=== PATIENT | male | born 1950 | race African-American/Black ===

== ENCOUNTER 2018-08-12 15:53 | Inpatient (IN) | payer OTHER ==
[2018-08-12 16:43] VITALS: BMI 26.6
--- NOTE | 2018-08-12 19:04 | HP ---
"CIWA Score Nausea/Vomitin-Mild Nausea/No Vomiting Muscle Tremors: 4-Moderate,w/Arms Extend Anxiety: 2 Agitation: 4-Moderately Restless Paroxysmal Sweats: 1-Minimal Palms Moist Orientation: 2-Disoriented Date<2 days Tacttile Disturbances: 0-None Auditory Disturbances: 0-None Visual Disturbances: 0-None Headache: 0-None Present CIWA-Ar Total Score: 14 - Admission Criteria OASAS Guidelines: Admission for Medically Managed Detox: Requires at least one of the followin. CIWA greater than 12 2. Seizures within the past 24 hours 3. Delirium tremens within the past 24 hours 4. Hallucinations within the past 24 hours 5. Acute intervention needed for co occurring medical disorder 6. Acute intervention needed for co occurring psychiatric disorder 7. Severe withdrawal that cannot be handled at a lower level of care (continued vomiting, continued diarrhea, abnormal vital signs) requiring intravenous medication and/or fluids 8. Patient presents the following: CIWA greater than 12 Admission Criteria Met: Admission criteria met Admission ROS [facility] Chief Complaint: Here for alcohol withdrawal. Allergies/Adverse Reactions: Allergies Allergy/AdvReac Type Severity Reaction Status Date / Time No Known Allergies Allergy Verified 08/12/18 17:28 History of Present Illness: Hx alcohol use since age 19. Denies blackouts, seizures. Longest length of sobriety '94 to '09. Hx: A-Fib, HTN, DM, Increased cholesterol. BGM on admission 249. Hx: Prostectomy, Seen at [facility] ER for depression earlier today and sent to [facility] for alcohol detox. Denies thoughts of harming self or others. Search Terms: [facility] [place], 1950 Search Date: 08/12/2018 07:01:55 PM The Drug Utilization Report below displays all of the controlled substance prescriptions, if any, that your patient has filled in the last twelve months. The information displayed on this report is compiled from pharmacy submissions to the Department, and accurately reflects the information as submitted by the pharmacies. This report was requested by: Gauri Verma | Reference #: [id number] There are no results for the search terms that you entered. Exam Limitations: No Limitations - Ebola screening Have you traveled outside of the country in the last 21 days: Yes ([facility]) Have you had contact with anyone from an Ebola affected area: No Have you been sick,other than usual withdrawal symptoms: No Do you have a fever: No - Review of Systems Constitutional: Diaphoresis, Changes in sleep (Difficulty sleeping r/t alcohol use) EENT: reports: Blurred Vision, Other (Runny nose - r/t cold weather) Respiratory: reports: No Symptoms reported Cardiac: reports: Irregular Heart Rate (A- Fib) GI: reports: Nausea (r/t withdrawal), Indigestion (burning sensation when drinking) : reports: Frequency (4-5 x/night nocturia. Denies burning, pain, blood w/ urination.) Musculoskeletal: reports: Back Pain (Chronic intermittent LBP - 'nagging' - pain is a '5'. Worse in am's when getting OOB. Improves w/support and rest.) Integumentary: reports: No Symptoms Reported Neuro: reports: Numbness (Occ numbness in fingers r/t sleeping position.), Tremors Endocrine: reports: No Symptoms Reported Hematology: reports: No Symptoms Reported Psychiatric: reports: Judgement Intact, Orientated x3 (Missed date by 2 days.), Agitated, Anxious, Depressed (Denies thoughts of harming self or others) Patient History - Patient Medical History Hx Anemia: No Hx Asthma: No Hx Chronic Obstructive Pulmonary Disease (COPD): No Hx Cancer: No Hx Cardiac Disorders: No Hx Congestive Heart Failure: No Hx Hypertension: Yes Hx Hypercholesterolemia: Yes Hx Pacemaker: No HX Cerebrovascular Accident: No Hx Seizures: No Hx Dementia: No Hx Diabetes: Yes (NIDDM) Hx Gastrointestinal Disorders: No Hx Liver Disease: No Hx Genitourinary Disorders: No Hx Sexually Transmitted Disorders: No Hx Renal Disease (ESRD): No Hx Thyroid Disease: No Hx Human Immunodeficiency Virus (HIV): No (3 years ago - negative) Hx Hepatitis C: No Hx Depression: Yes Hx Suicide Attempt: No Hx Bipolar Disorder: No Hx Schizophrenia: No - Patient Surgical History Past Surgical History: Yes Hx Neurologic Surgery: No Hx Cataract Extraction: No Hx Cardiac Surgery: No Hx Lung Surgery: No Hx Breast Surgery: No Hx Breast Biopsy: No Hx Abdominal Surgery: No Hx Appendectomy: No Hx Cholecystectomy: No Hx Genitourinary Surgery: No Hx Section: No Hx Orthopedic Surgery: No Other Surgical History: prostactomy (prostate ca) in 1998 - PPD History Previous Implant?: Yes Documented Results: Positive w/o proof Implanted On Prior [facility] Admission?: No PPD to be Administered?: No - Smoking Cessation Smoking history: Never smoked Have you smoked in the past 12 months: No Hx Chewing Tobacco Use: No Initiated information on smoking cessation: No - Substance & Tx. History Hx Alcohol Use: Yes Hx Substance Use: Yes Substance Use Type: None, Alcohol Hx Substance Use Treatment: Yes (detox) - Substances Abused Alcohol-wine/beer Route: Oral Frequency: 3-6 times per week Amount used: 3 pts./1-6 pk. Age of first use: 19 Date of Last Use: 08/12/18 Admission Physical Exam BHS - Vital Signs Vital Signs: Vital Signs - 24 hr 08/12/18 16:41 Temperature 97.3 F L Pulse Rate 99 H Respiratory 18 Rate Blood Pressure 120/81 - Physical General Appearance: Yes: Mild Distress, Tremorous, Sweating, Anxious HEENTM: Yes: EOMI, Hearing grossly Normal, Normal Voice, HALIE, Pharynx Normal, Rhinorrhea (Clear nasal discharge) Respiratory: Yes: Lungs Clear, Normal Breath Sounds, No Respiratory Distress Neck: Yes: No masses,lesions,Nodules, Supple Breast: Yes: Breast Exam Deferred Cardiology: Yes: Murmur, Tachycardia, Irregular Abdominal: Yes: Non Tender, Flat, Soft, Increased Bowel Sounds Genitourinary: Yes: Frequency Back: Yes: Normal Inspection Musculoskeletal: Yes: full range of Motion, Gait Steady Extremities: Yes: Normal Capillary Refill, Normal Range of Motion, Non-Tender, Tremors (of hands when arms extended) 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: 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: 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 intact, Alert, Motor Strength 5/5, Normal Mood /Affect, Normal Response Integumentary: Yes: Normal Color, Dry (Decreased skin turgor), Warm Lymphatic: Yes: Within Normal Limits - Diagnostic (1) Atrial fibrillation Current Visit: Yes Status: Acute Qualifiers: Atrial fibrillation type: chronic Qualified Code(s): I48.2 - Chronic atrial fibrillation Comment: Murmur noted; tachycardia (2) Alcohol dependence with uncomplicated withdrawal Current Visit: Yes Status: Acute (3) Diabetes mellitus Current Visit: Yes Status: Chronic Qualifiers: Diabetes mellitus type: type 2 Diabetes mellitus bed bug exterminator insulin use: without bed bug exterminator use Diabetes mellitus complication status: without complication Qualified Code(s): E11.9 - Type 2 diabetes mellitus without complications (4) H/O prostatectomy Current Visit: No Status: Chronic (5) Hyperlipidemia Current Visit: Yes Status: Chronic Qualifiers: Hyperlipidemia type: unspecified Qualified Code(s): E78.5 - Hyperlipidemia , unspecified (6) Hypertension Current Visit: Yes Status: Chronic Qualifiers: Hypertension type: essential hypertension Qualified Code(s): I10 - Essential (primary) hypertension (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
[2018-08-12] MEDS ORDERED: MAGNESIUM CITRATE 300 ML BOTTLE PO PRN (19:48)
[2018-08-12] MEDS ORDERED: MENTHOL/PHENOL 1 EACH UD MM PRN (19:48)
[2018-08-12] MEDS ORDERED: ACETAMINOPHEN 325 MG TABLET (FP) PO PRN (19:48)
[2018-08-12] MEDS ORDERED: MAG HYDROX/AL HYDROX/SIMETH 30 ML UNIT-DOSE CUP PO PRN (19:48)
[2018-08-12] MEDS ORDERED: LOPERAMIDE HCL 2 MG CAPSULE PO PRN (19:48)
[2018-08-12] MEDS ORDERED: chlordiazePOXIDE HCL 25 MG CAPSULE PO PRN (19:48)
[2018-08-12] MEDS ORDERED: MAGNESIUM HYDROX 2400MG/30ML ORAL SUSPENSION 30 ML CUP PO PRN (19:48)
[2018-08-12] MEDS ORDERED: chlordiazePOXIDE HCL 25 MG CAPSULE PO ONE (20:30)
[2018-08-12] MEDS ORDERED: MELATONIN 5 MG TABLETS PO PRN (22:00)
[2018-08-12] MEDS: chlordiazePOXIDE HCL 25 MG CAPSULE PO SCH (23:10)
[2018-08-12] MEDS: THIAMINE HCL 100 MG TABLET (FP) PO SCH (23:10)
[2018-08-12] MEDS: ATORVASTATIN CA 40 MG TABLET (FP) PO SCH (23:10)
[2018-08-12] MEDS: APIXABAN 5 MG TABLET PO SCH (23:11)
[2018-08-13] MEDS: chlordiazePOXIDE HCL 25 MG CAPSULE PO SCH ×4 (06:50→22:37)
--- NOTE | 2018-08-13 10:26 | PN ---
BHS CIWA - CIWA Score Nausea/Vomitin Muscle Tremors: 2 Anxiety: 2 Agitation: 2 Paroxysmal Sweats: 2 Orientation: 0-Oriented Tacttile Disturbances: 1-Very Mild Itch/Numbness Auditory Disturbances: 0-None Visual Disturbances: 0-None Headache: 1-Very Mild CIWA-Ar Total Score: 12 BHS Progress Note (SOAP) Subjective: Interrupted sleep, muscle aches, decreased appetite Objective: 08/13/18 10:25 Vital Signs - 8 hr 08/13/18 08/13/18 08/13/18 03:30 06:00 09:20 Temperature 97.5 F L 98.4 F Pulse Rate 98 H 99 H Respiratory 16 18 18 Rate Blood Pressure 109/66 124/93 Labs pending Assessment: 08/13/18 10:25 Withdrawal sx Plan: Continue detox
[2018-08-13 10:43] LABS: HEMATOCRIT 38.3 % (35.4-49); HEMOGLOBIN 12.3 GM/dL (11.7-16.9); MCH 27.7 pg (25.7-33.7); MEAN CELL VOLUME 86.4 fl (80-96); MEAN PLT VOLUME 9.2 fl (7.5-11.1); PLATELET COUNT 238 K/MM3 (134-434); RBC 4.43 M/mm3 (4.00-5.60); RDW 13.6 % (11.9-15.9); WHITE BLOOD COUNT 6.4 K/mm3 (4.0-10.0)
[2018-08-13 10:51] LABS: ALBUMIN 3.4 g/dl (3.4-5.0); ALK PHOS 70 U/L (45-117); ANION GAP 9 MMOL/L (8-16); BILIRUBIN,TOTAL 0.4 mg/dL (0.2-1); BLOOD UREA NITROGEN 11 mg/dL (7-18); CALCIUM 8.5 mg/dL (8.5-10.1); CHLORIDE 95 mmol/L (98-107); CO2 28 mmol/L (21-32); CREATININE 1.3 mg/dL (0.55-1.3); GLUCOSE,RANDOM 205 mg/dL (74-106); POTASSIUM 4.1 mmol/L (3.5-5.1); SGOT/AST 28 U/L (15-37); SGPT/ALT 42 U/L (13-61); SODIUM 133 mmol/L (136-145); TOT PROT 6.7 g/dl (6.4-8.2)
[2018-08-13] MEDS: LISINOPRIL 20 MG TABLET (FP) PO SCH (11:04)
[2018-08-13] MEDS: PRENATAL VITAMINS W/ FOLIC ACID TABLET (FP) PO SCH (11:04)
[2018-08-13] MEDS: APIXABAN 5 MG TABLET PO SCH ×2 (11:04→22:37)
[2018-08-13] MEDS: THIAMINE HCL 100 MG TABLET (FP) PO SCH (22:37)
[2018-08-13] MEDS: ATORVASTATIN CA 40 MG TABLET (FP) PO SCH (22:37)
[2018-08-14] MEDS: chlordiazePOXIDE HCL 25 MG CAPSULE PO SCH ×3 (05:21→16:53)
[2018-08-14] MEDS: PRENATAL VITAMINS W/ FOLIC ACID TABLET (FP) PO SCH (10:16)
[2018-08-14] MEDS: LISINOPRIL 20 MG TABLET (FP) PO SCH (10:16)
[2018-08-14] MEDS: APIXABAN 5 MG TABLET PO SCH ×2 (10:16→22:39)
--- NOTE | 2018-08-14 15:09 | PN ---
S CIWA - CIWA Score Nausea/Vomitin-Mild Nausea/No Vomiting Muscle Tremors: 2 Anxiety: 3 Agitation: 2 Paroxysmal Sweats: 1-Minimal Palms Moist Orientation: 0-Oriented Tacttile Disturbances: 1-Very Mild Itch/Numbness Auditory Disturbances: 0-None Visual Disturbances: 0-None Headache: 0-None Present CIWA-Ar Total Score: 10 BHS Progress Note (SOAP) Subjective: tremor sweat restlessness anxiety Objective: 08/14/18 15:11 Vital Signs Temperature 98.3 F 08/14/18 14:13 Pulse Rate 76 08/14/18 14:13 Respiratory Rate 18 08/14/18 14:13 Blood Pressure 108/65 08/14/18 14:13 O2 Sat by Pulse Oximetry (%) Laboratory Last Values WBC 6.4 K/mm3 (4.0-10.0) 08/13/18 08:00 RBC 4.43 M/mm3 (4.00-5.60) 08/13/18 08:00 Hgb 12.3 GM/dL (11.7-16.9) 08/13/18 08:00 Hct 38.3 % (35.4-49) 08/13/18 08:00 MCV 86.4 fl (80-96) 08/13/18 08:00 MCH 27.7 pg (25.7-33.7) 08/13/18 08:00 MCHC 32.0 g/dl (32.0-35.9) 08/13/18 08:00 RDW 13.6 % (11.9-15.9) 08/13/18 08:00 Plt Count 238 K/MM3 (134-434) D 08/13/18 08:00 MPV 9.2 fl (7.5-11.1) 08/13/18 08:00 Sodium 133 mmol/L (136-145) L 08/13/18 08:00 Potassium 4.1 mmol/L (3.5-5.1) 08/13/18 08:00 Chloride 95 mmol/L (98-107) L 08/13/18 08:00 Carbon Dioxide 28 mmol/L (21-32) 08/13/18 08:00 Anion Gap 9 MMOL/L (8-16) 08/13/18 08:00 BUN 11 mg/dL (7-18) 08/13/18 08:00 Creatinine 1.3 mg/dL (0.55-1.3) 08/13/18 08:00 Creat Clearance w eGFR 55.06 (>60) 08/13/18 08:00 POC Glucometer 203 UNITS (80-120) 08/14/18 05:21 Random Glucose 205 mg/dL (74-106) H 08/13/18 08:00 Calcium 8.5 mg/dL (8.5-10.1) 08/13/18 08:00 Total Bilirubin 0.4 mg/dL (0.2-1) 08/13/18 08:00 AST 28 U/L (15-37) 08/13/18 08:00 ALT 42 U/L (13-61) 08/13/18 08:00 Alkaline Phosphatase 70 U/L (45-117) 08/13/18 08:00 Total Protein 6.7 g/dl (6.4-8.2) 08/13/18 08:00 Albumin 3.4 g/dl (3.4-5.0) 08/13/18 08:00 RPR Titer Nonreactive (NONREACTIVE) 08/13/18 08:00 lab noted Assessment: 08/14/18 15:11 withdrawal sx Plan: continue detox
[2018-08-14] MEDS: THIAMINE HCL 100 MG TABLET (FP) PO SCH (22:39)
[2018-08-14] MEDS: ATORVASTATIN CA 40 MG TABLET (FP) PO SCH (22:39)
[2018-08-14] MEDS: chlordiazePOXIDE 5 MG CAPSULE PO SCH (23:18)
[2018-08-15] MEDS: chlordiazePOXIDE 5 MG CAPSULE PO SCH ×3 (06:30→17:29)
[2018-08-15] MEDS: APIXABAN 5 MG TABLET PO SCH ×2 (10:15→22:50)
[2018-08-15] MEDS: LISINOPRIL 20 MG TABLET (FP) PO SCH (10:15)
[2018-08-15] MEDS: PRENATAL VITAMINS W/ FOLIC ACID TABLET (FP) PO SCH (10:15)
--- NOTE | 2018-08-15 14:19 | PN ---
BHS Progress Note (SOAP) Subjective: feeling better no gi distress no tremor sleep better at night swet Objective: 08/15/18 14:18 Vital Signs Temperature 98.1 F 08/15/18 12:49 Pulse Rate 81 08/15/18 12:49 Respiratory Rate 18 08/15/18 12:49 Blood Pressure 103/68 08/15/18 12:49 O2 Sat by Pulse Oximetry (%) Laboratory Last Values WBC 6.4 K/mm3 (4.0-10.0) 08/13/18 08:00 RBC 4.43 M/mm3 (4.00-5.60) 08/13/18 08:00 Hgb 12.3 GM/dL (11.7-16.9) 08/13/18 08:00 Hct 38.3 % (35.4-49) 08/13/18 08:00 MCV 86.4 fl (80-96) 08/13/18 08:00 MCH 27.7 pg (25.7-33.7) 08/13/18 08:00 MCHC 32.0 g/dl (32.0-35.9) 08/13/18 08:00 RDW 13.6 % (11.9-15.9) 08/13/18 08:00 Plt Count 238 K/MM3 (134-434) D 08/13/18 08:00 MPV 9.2 fl (7.5-11.1) 08/13/18 08:00 Sodium 133 mmol/L (136-145) L 08/13/18 08:00 Potassium 4.1 mmol/L (3.5-5.1) 08/13/18 08:00 Chloride 95 mmol/L (98-107) L 08/13/18 08:00 Carbon Dioxide 28 mmol/L (21-32) 08/13/18 08:00 Anion Gap 9 MMOL/L (8-16) 08/13/18 08:00 BUN 11 mg/dL (7-18) 08/13/18 08:00 Creatinine 1.3 mg/dL (0.55-1.3) 08/13/18 08:00 Creat Clearance w eGFR 55.06 (>60) 08/13/18 08:00 POC Glucometer 164 UNITS (80-120) 08/15/18 06:58 Random Glucose 205 mg/dL (74-106) H 08/13/18 08:00 Calcium 8.5 mg/dL (8.5-10.1) 08/13/18 08:00 Total Bilirubin 0.4 mg/dL (0.2-1) 08/13/18 08:00 AST 28 U/L (15-37) 08/13/18 08:00 ALT 42 U/L (13-61) 08/13/18 08:00 Alkaline Phosphatase 70 U/L (45-117) 08/13/18 08:00 Total Protein 6.7 g/dl (6.4-8.2) 08/13/18 08:00 Albumin 3.4 g/dl (3.4-5.0) 08/13/18 08:00 RPR Titer Nonreactive (NONREACTIVE) 08/13/18 08:00 lab noted [facility] for possible 10 mg po daily 08/15/18 14:19 Assessment: 08/15/18 14:20 mild withdrawal sx Plan: medically supervised detox
[2018-08-15 17:13] LABS: URINE APPEARANCE CLEAR; URINE BILIRUBIN NEGATIVE (<2.0 mg/dL); URINE COLOR STRAW; URINE GLUCOSE (UA) NEGATIVE (NEGATIVE); URINE KETONE NEGATIVE (NEGATIVE); URINE LEUK ESTERASE NEGATIVE (NEGATIVE); URINE NITRITE NEGATIVE (NEGATIVE); URINE PROTEIN NEGATIVE (NEGATIVE); URINE UROBILINOGEN NEGATIVE mg/dL (0.2-1.0)
[2018-08-15] MEDS: chlordiazePOXIDE HCL 10 MG CAPSULE PO SCH (22:50)
[2018-08-15] MEDS: ATORVASTATIN CA 40 MG TABLET (FP) PO SCH (22:50)
[2018-08-15] MEDS: THIAMINE HCL 100 MG TABLET (FP) PO SCH (22:51)
[2018-08-16] MEDS: chlordiazePOXIDE HCL 10 MG CAPSULE PO SCH ×2 (06:40→10:37)
[2018-08-16 09:35] VITALS: BP 123/78; PULSE 94; TEMP 97.7
[2018-08-16] MEDS: PRENATAL VITAMINS W/ FOLIC ACID TABLET (FP) PO SCH (10:37)
[2018-08-16] MEDS: APIXABAN 5 MG TABLET PO SCH (10:37)
[2018-08-16] MEDS: LISINOPRIL 20 MG TABLET (FP) PO SCH (10:37)
--- NOTE | 2018-08-16 12:00 | DS ---
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43 M/mm3 (4.00-5.60) 08/13/18 08:00 Hgb 12.3 GM/dL (11.7-16.9) 08/13/18 08:00 Hct 38.3 % (35.4-49) 08/13/18 08:00 MCV 86.4 fl (80-96) 08/13/18 08:00 MCH 27.7 pg (25.7-33.7) 08/13/18 08:00 MCHC 32.0 g/dl (32.0-35.9) 08/13/18 08:00 RDW 13.6 % (11.9-15.9) 08/13/18 08:00 Plt Count 238 K/MM3 (134-434) D 08/13/18 08:00 MPV 9.2 fl (7.5-11.1) 08/13/18 08:00 Sodium 133 mmol/L (136-145) L 08/13/18 08:00 Potassium 4.1 mmol/L (3.5-5.1) 08/13/18 08:00 Chloride 95 mmol/L (98-107) L 08/13/18 08:00 Carbon Dioxide 28 mmol/L (21-32) 08/13/18 08:00 Anion Gap 9 MMOL/L (8-16) 08/13/18 08:00 BUN 11 mg/dL (7-18) 08/13/18 08:00 Creatinine 1.3 mg/dL (0.55-1.3) 08/13/18 08:00 Creat Clearance w eGFR 55.06 (>60) 08/13/18 08:00 POC Glucometer 183 UNITS (80-120) 08/16/18 11:24 Random Glucose 205 mg/dL (74-106) H 08/13/18 08:00 Calcium 8.5 mg/dL (8.5-10.1) 08/13/18 08:00 Total Bilirubin 0.4 mg/dL (0.2-1) 08/13/18 08:00 AST 28 U/L (15-37) 08/13/18 08:00 ALT 42 U/L (13-61) 08/13/18 08:00 Alkaline Phosphatase 70 U/L (45-117) 08/13/18 08:00 Total Protein 6.7 g/dl (6.4-8.2) 08/13/18 08:00 Albumin 3.4 g/dl (3.4-5.0) 08/13/18 08:00 Urine Color Straw 08/15/18 09:50 Urine Appearance Clear 08/15/18 09:50 Urine pH 7.0 (5.0-8.0) 08/15/18 09:50 Ur Specific [place] 1.008 (1.010-1.035) L 08/15/18 09:50 Urine Protein Negative (NEGATIVE) 08/15/18 09:50 Urine Glucose (UA) Negative (NEGATIVE) 08/15/18 09:50 Urine Ketones Negative (NEGATIVE) 08/15/18 09:50 Urine Blood Negative (NEGATIVE) 08/15/18 09:50 Urine Nitrite Negative (NEGATIVE) 08/15/18 09:50 Urine Bilirubin Negative (<2.0 mg/dL) 08/15/18 09:50 Urine Urobilinogen Negative mg/dL (0.2-1.0) 08/15/18 09:50 Ur Leukocyte Esterase Negative (NEGATIVE) 08/15/18 09:50 RPR Titer Nonreactive (NONREACTIVE) 08/13/18 08:00 lab noted - Treatment Hospital Course: Detox Protocol Followed, Detoxed Safely, Responded well, Discharged Condition Good, Rehab Referral Accepted Patient has Accepted a Rehab Referral to: [facility] - Medication Discharge Medications: Ambulatory Orders Apixaban [Eliquis -] 5 mg PO BID 08/12/18 Atorvastatin Ca [Lipitor] 40 mg PO HS #14 tablet 08/15/18 Lisinopril [Prinivil] 20 mg PO DAILY #14 tablet 08/15/18 Metoprolol Succinate [Toprol Xl] 50 mg PO DAILY #14 tab.er.24h 08/15/18 metFORMIN XR [Glucophage Xr -] 500 mg PO BID #30 tab.sr.24h 08/15/18 - Diagnosis (1) Alcohol dependence with uncomplicated withdrawal Current Visit: Yes Status: Acute (2) Atrial fibrillation Current Visit: Yes Status: Chronic Qualifiers: Atrial fibrillation type: chronic Qualified Code(s): I48.2 - Chronic atrial fibrillation (3) Hyperlipidemia Current Visit: Yes Status: Chronic Qualifiers: Hyperlipidemia type: unspecified Qualified Code(s): E78.5 - Hyperlipidemia , unspecified (4) Hypertension Current Visit: Yes Status: Chronic Qualifiers: Hypertension type: essential hypertension Qualified Code(s): I10 - Essential (primary) hypertension (5) Positive PPD Current Visit: No Status: Resolved - AMA Did Patient Leave Against Medical Advice: No
== END 2018-08-16 12:54 | disposition home or self-care (01) | DRG 897 ==
LOC: YASAS 15:53 → Y6N 18:34
PROC: HZ2ZZZZ Detoxification Services for Substance Abuse Treatment (ICD-10-PCS; principal; 2018-08-12)
DX: F10.230 Alcohol dependence with withdrawal, uncomplicated (principal); F10.280 Alcohol dependence with alcohol-induced anxiety disorder; F10.282 Alcohol dependence with alcohol-induced sleep disorder; I10 Essential (primary) hypertension; I48.2 Chronic atrial fibrillation; Z79.01 Long term (current) use of anticoagulants; E11.9 Type 2 diabetes mellitus without complications; Z79.84 Long term (current) use of oral hypoglycemic drugs; E78.5 Hyperlipidemia, unspecified; R76.11 Nonspecific reaction to tuberculin skin test without active tuberculosis; Z85.46 Personal history of malignant neoplasm of prostate; Z90.79 Acquired absence of other genital organ(s)
CPT/HCPCS: 36415; 71046-TC-FY; 80053; 81003; 82962; 85027; 86593

== ENCOUNTER 2020-04-07 17:30 | Inpatient (IN) | payer OTHER ==
[2020-04-07 17:39] VITALS: BMI 27.7
--- NOTE | 2020-04-07 17:52 | HP ---
CIWA Score Nausea/Vomitin-No Nausea/No Vomiting Muscle Tremors: 1-None Visible, but [place] Anxiety: 2 Agitation: 0-Normal Activity Paroxysmal Sweats: No Perspiration Orientation: 0-Oriented Tacttile Disturbances: 1-Very Mild Itch/Numbness Auditory Disturbances: 0-None Visual Disturbances: 0-None Headache: 0-None Present CIWA-Ar Total Score: 4 - Admission Criteria OASAS Guidelines: Admission for Medically Managed Detox: Requires at least one of the followin. CIWA greater than 12 2. Seizures within the past 24 hours 3. Delirium tremens within the past 24 hours 4. Hallucinations within the past 24 hours 5. Acute intervention needed for co occurring medical disorder 6. Acute intervention needed for co occurring psychiatric disorder 7. Severe withdrawal that cannot be handled at a lower level of care (continued vomiting, continued diarrhea, abnormal vital signs) requiring intravenous medication and/or fluids 8. Admitting History and Physical - Past Medical History Cardiovascular: Yes: AFIB, HTN Endocrine: Yes: Diabetes Mellitus - Past Surgical History Past Surgical History: Yes: Prostatectomy - Smoking History Smoking history: Never smoked Have you smoked in the past 12 months: No - Alcohol/Substance Use Hx Alcohol Use: Yes Admission [facility] Chief Complaint: Alcohol withdrawal Allergies/Adverse Reactions: Allergies Allergy/AdvReac Type Severity Reaction Status Date / Time No Known Allergies Allergy Verified 04/04/20 16:28 History of Present Illness: Patient is a 69 y/o man who initially presented for alcohol detox but was sent to [facility] for abnrmal EKG. He was admitted and kept on Librium detox, sent back for detox completion. He was given 10mg of Librium every 6hrs today, he is scheduled for librium 10mg every 12hrs on 04/08 then 10 mg one dose on 04/09 then stop. He will be maintained on same regimen. During the stay at [facility], he was evaluated with lab work, imaging including a chest x-ray which did not show any significant abnormalities. It was found that abnormal EKG was a result of alcohol withdrawal. He was seen by cardi ologist with follow up recommendation. He was treated with fluids and cardiac meds. [place] [facility] [place] [facility] [place] [facility] [place]Provider Group] - 1 Week Brad Giang MD [Staff Physician] - 1 Week Exam Limitations: No Limitations - Ebola screening Have you traveled outside of the country in the last 21 days: No Have you had contact with anyone from an Ebola affected area: No Have you been sick,other than usual withdrawal symptoms: No Do you have a fever: No - Review of Systems Constitutional: No Symptoms Reported EENT: reports: Blurred Vision Respiratory: reports: Cough Cardiac: reports: No Symptoms Reported GI: reports: No Symptoms Reported : reports: No Symptoms Reported Musculoskeletal: reports: Muscle Weakness Integumentary: reports: No Symptoms Reported Neuro: reports: Weakness Endocrine: reports: No Symptoms Reported Hematology: reports: No Symptoms Reported Psychiatric: reports: Anxious, Depressed Other Systems: Reviewed and Negative Patient History - Patient Medical History Hx Anemia: No Hx Asthma: No Hx Chronic Obstructive Pulmonary Disease (COPD): No Hx Cancer: No Hx Cardiac Disorders: Yes (Hx of AFIB) Hx Congestive Heart Failure: No Hx Hypertension: Yes Hx Hypercholesterolemia: Yes Hx Pacemaker: No HX Cerebrovascular Accident: No Hx Seizures: No Hx Dementia: No Hx Diabetes: Yes (NIDDM) Hx Gastrointestinal Disorders: No Hx Liver Disease: No Hx Genitourinary Disorders: No Hx Sexually Transmitted Disorders: No Hx Renal Disease (ESRD): No Hx Thyroid Disease: No Hx Human Immunodeficiency Virus (HIV): No Hx Hepatitis C: No Hx Depression: Yes Hx Suicide Attempt: No Hx Bipolar Disorder: No Hx Schizophrenia: No - Patient Surgical History Past Surgical History: Yes Hx Neurologic Surgery: No Hx Cataract Extraction: No Hx Cardiac Surgery: No Hx Lung Surgery: No Hx Breast Surgery: No Hx Breast Biopsy: No Hx Abdominal Surgery: No Hx Appendectomy: No Hx Cholecystectomy: No Hx Genitourinary Surgery: No Hx Section: No Hx Orthopedic Surgery: No Other Surgical History: prostatectomy (prostate ca) in 1998 Anesthesia Reaction: No - Smoking Cessation Smoking history: Never smoked Have you smoked in the past 12 months: No Hx Chewing Tobacco Use: No - Substances abused Alcohol Substance route: Oral Frequency: Daily Amount used: 7-8 [place] 16 ounces Age of first use: 19 Date of last use: 04/03/20 Admission Physical Exam BHS - Vital Signs Vital Signs: Vital Signs - 24 hr 04/07/20 17:36 Temperature 96.9 F L Pulse Rate 83 Respiratory 18 Rate Blood Pressure 136/90 - Physical General Appearance: Yes: No Apparent Distress HEENTM: Yes: Hearing grossly Normal, Normocephalic, Normal Voice Respiratory: Yes: Chest Non-Tender, Lungs Clear Neck: Yes: No masses,lesions,Nodules, Supple Breast: Yes: Breast Exam Deferred Cardiology: Yes: Regular Rhythm, Regular Rate Abdominal: Yes: Normal Bowel Sounds, Soft Genitourinary: Yes: Within Normal Limits Musculoskeletal: Yes: full range of Motion Extremities: Yes: Within Normal Limits 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: Yes: Alert, Normal Mood/Affect, Normal Response Integumentary: Yes: Normal Color Lymphatic: Yes: Within Normal Limits - Diagnostic (1) Atrial fibrillation Current Visit: Yes Status: Chronic Qualifiers: Atrial fibrillation type: chronic Comment: Murmur noted; tachycardia (2) Diabetes mellitus Current Visit: Yes Status: Chronic Qualifiers: Diabetes mellitus type: type 2 Diabetes mellitus director of quality improvement insulin use: without fdc use Diabetes mellitus complication status: without complication Qualified Code(s): E11.9 - Type 2 diabetes mellitus without complications (3) Alcohol dependence with uncomplicated withdrawal Current Visit: Yes Status: Acute Cleared for Admission S - Detox or Rehab [facility] Level of Care: Medically Managed Detox Regimen/Protocol: Librium Claeared for Rehab Admission: No Breathalyzer - Breathalyzer Breathalyzer: 0 Urine Drug Screen - Test Device Lot number: [id number] Expiration date: 05/27/21 - Control Is test valid?: Yes - Results Drug screen NEGATIVE: No Urine drug screen results: BZO-Benzodiazepines Inpatient Rehab Admission - Rehab Decision to Admit Inpatient rehab admission?: No
[2020-04-07] MEDS ORDERED: ACETAMINOPHEN 325 MG TABLET (FP) PO PRN ×2 (17:55)
[2020-04-07] MEDS ORDERED: MENTHOL/PHENOL 1 EACH UD MM PRN (17:55)
[2020-04-07] MEDS ORDERED: BISMUTH SUBSALICYLATE 524 MG/30 ML UD PO PRN (17:55)
[2020-04-07] MEDS ORDERED: IBUPROFEN 400 MG TABLET (FP) PO PRN (17:55)
[2020-04-07] MEDS ORDERED: MAG HYDROX/AL HYDROX/SIMETH 30 ML UNIT-DOSE CUP PO PRN (17:55)
[2020-04-07] MEDS ORDERED: METHOCARBAMOL 500 MG TABLET PO PRN (17:55)
[2020-04-07] MEDS ORDERED: MAGNESIUM CITRATE 300 ML BOTTLE PO PRN (17:55)
[2020-04-07] MEDS ORDERED: ONDANSETRON *ODT* 4 MG TABLET SL ONE (17:55)
[2020-04-07] MEDS ORDERED: hydrOXYzine PAMOATE 25 MG CAPSULE (FP) PO PRN (17:55)
[2020-04-07] MEDS ORDERED: MAGNESIUM HYDROX 2400MG/30ML ORAL SUSPENSION 30 ML CUP PO PRN (17:55)
[2020-04-07] MEDS ORDERED: chlordiazePOXIDE HCL 25 MG CAPSULE PO SCH (18:00)
[2020-04-07] MEDS ORDERED: chlordiazePOXIDE 5 MG CAPSULE PO SCH (18:00)
[2020-04-07] MEDS: chlordiazePOXIDE HCL 10 MG CAPSULE PO SCH (19:20)
[2020-04-07] MEDS: THIAMINE HCL 100 MG TABLET (FP) PO SCH (22:32)
[2020-04-07] MEDS: MELATONIN 5 MG TABLETS PO SCH (22:32)
[2020-04-07] MEDS: ATORVASTATIN CA 40 MG TABLET (FP) PO SCH (22:32)
[2020-04-07] MEDS: traZODone HCL 100 MG TABLET (FP) PO SCH (22:32)
[2020-04-08] MEDS: chlordiazePOXIDE HCL 10 MG CAPSULE PO SCH ×2 (05:08→17:00)
[2020-04-08] MEDS: metFORMIN HCL 500 MG TABLET (FP) PO SCH ×2 (06:05→16:57)
--- NOTE | 2020-04-08 09:13 | CONSULT ---
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 Refer to addiction counselor's summary for further information Medical History: Significant for hypertension, dyslipidemia, type 2 diabetes mellitus, GERD, PPD+and prostatectomy for cancer in 1998. Psychiatric History: Patient is known for two previous admissions to this facility. He reports that his first psychiatric contact occured in 1999 when he was diagnosed with MDD by a private psychiatrist in the [place]. Reports that he has been receiving psychiatric treatment on & off since. Denies that he does not currently see a psychiatrist but takes Lexapro 20 mg/ronaldo and Trazadone 100 mg/hs prescribed by his primary care physician. Reports one previous psychiatric hospitalization 2 years ago at [facility] for depression. At present, reports feeling mildly depressed and sleeping poorly Physical/Sexual Abuse/Trauma History: Denies history of abuse as a child or DV relationship as an adult Mental Status Exam - Mental Status Exam Alert and Oriented to: Time, Place, Person Cognitive Function: Fair Patient Appearance: Disheveled Mood: Depressed Affect: Appropriate Patient Behavior: Cooperative Speech Pattern: Clear Voice Loudness: Normal Thought Process: Intact Hallucinations: Denies Suicidal Ideation: Denies Homicidal Ideation: Denies Insight/Judgement: Poor Sleep: Poorly Appetite: Good Muscle strength/Tone: Normal Gait/Station: Normal Psychiatric Findings - Problem List ([place] 1, 2,3) (1) Depressive disorder Current Visit: Yes Status: Chronic (2) MDD (major depressive disorder) Current Visit: Yes Status: Ruled-out (3) Alcohol-induced mood disorder Current Visit: Yes Status: Acute (4) Alcohol-induced sleep disorder Current Visit: Yes Status: Acute (5) Alcohol dependence with uncomplicated withdrawal Current Visit: Yes Status: Acute (6) Hypertension Current Visit: No Status: Chronic Qualifiers: Hypertension type: essential hypertension Qualified Code(s): I10 - Essential (primary) hypertension (7) Hyperlipidemia Current Visit: No Status: Chronic Qualifiers: Hyperlipidemia type: unspecified Qualified Code(s): E78.5 - Hyperlipidemia, unspecified (8) Diabetes mellitus Current Visit: Yes Status: Chronic Qualifiers: Diabetes mellitus type: type 2 Diabetes mellitus penitentiary insulin use: without lobsterman use Diabetes mellitus complication status: without complication Qualified Code(s): E11.9 - Type 2 diabetes mellitus without complications (9) Atrial fibrillation Current Visit: Yes Status: Chronic Qualifiers: Atrial fibrillation type: chronic Comment: Murmur noted; tachycardia (10) Positive PPD Current Visit: No Status: Chronic (11) GERD (gastroesophageal reflux disease) Current Visit: Yes Status: Chronic (12) H/O prostatectomy Current Visit: No Status: Resolved - Initial Treatment Plan Initial Treatment Plan: 1) Continue Lexapro 20 mg po daily and Trazadone 100 mg po HS. 2) Continue inpatient detoxification
[2020-04-08] MEDS: LISINOPRIL 20 MG TABLET (FP) PO SCH (10:06)
[2020-04-08] MEDS: PRENATAL VITAMINS W/ FOLIC ACID TABLET (FP) PO SCH (10:06)
--- NOTE | 2020-04-08 10:45 | PN ---
S CIWA - CIWA Score Nausea/Vomitin-Mild Nausea/No Vomiting Muscle Tremors: 2 Anxiety: 2 Agitation: 1-Slight > Activity Paroxysmal Sweats: No Perspiration Orientation: 0-Oriented Tacttile Disturbances: 0-None Auditory Disturbances: 0-None Visual Disturbances: 0-None Headache: 1-Very Mild CIWA-Ar Total Score: 7 BHS Progress Note (SOAP) Subjective: alert,nausea,irritable,anxious,interrupted sleep Objective: 04/08/20 10:43 Vital Signs Temperature 97.8 F 04/08/20 06:32 Pulse Rate 91 H 04/08/20 06:32 Respiratory Rate 18 04/08/20 06:32 Blood Pressure 124/82 04/08/20 06:32 O2 Sat by Pulse Oximetry (%) 98 04/08/20 06:32 patient has covid [address] [facility] on 04/04/2020 Assessment: 04/08/20 10:44 withdrawal symptom Plan: continue detox librium regimen
[2020-04-08 11:11] LABS: BASO % 0.4 % (0-2.0); EOS % 1.4 % (0-4.5); HEMATOCRIT 36.6 % (35.4-49); HEMOGLOBIN 12.1 GM/dL (11.7-16.9); LYMPH % 45.4 % (8-40); MCH 29.3 pg (25.7-33.7); MCHC 32.9 g/dl (32.0-35.9); MEAN CELL VOLUME 89.2 fl (80-96); MONO % 9.1 % (3.8-10.2); NEUT % 43.7 % (42.8-82.8); PLATELET COUNT 144 K/MM3 (134-434); RBC 4.11 M/mm3 (4.00-5.60); RDW 13.6 % (11.9-15.9); WHITE BLOOD COUNT 4.7 K/mm3 (4.0-10.0)
[2020-04-08 11:27] LABS: ALBUMIN 3.1 g/dl (3.4-5.0); BILIRUBIN,TOTAL 0.4 mg/dL (0.2-1); BLOOD UREA NITROGEN 5.3 mg/dL (7-18); CALCIUM 8.5 mg/dL (8.5-10.1); CREATININE 1.1 mg/dL (0.55-1.3); MAGNESIUM 1.6 mg/dL (1.8-2.4); PHOSPHOROUS 3.7 mg/dL (2.5-4.9); POTASSIUM 3.7 mmol/L (3.5-5.1)
[2020-04-08] MEDS: RIVAROXABAN 20 MG TABLET PO SCH (11:42)
[2020-04-08] MEDS: ESCITALOPRAM OXALATE 20 MG TABLET PO SCH (11:42)
[2020-04-08] MEDS: THIAMINE HCL 100 MG TABLET (FP) PO SCH (22:05)
[2020-04-08] MEDS: MELATONIN 5 MG TABLETS PO SCH (22:05)
[2020-04-08] MEDS: ATORVASTATIN CA 40 MG TABLET (FP) PO SCH (22:05)
[2020-04-08] MEDS: traZODone HCL 100 MG TABLET (FP) PO SCH (22:05)
[2020-04-09] MEDS: chlordiazePOXIDE HCL 10 MG CAPSULE PO SCH (07:32)
[2020-04-09] MEDS: metFORMIN HCL 500 MG TABLET (FP) PO SCH ×2 (07:32→16:22)
[2020-04-09] MEDS: ESCITALOPRAM OXALATE 20 MG TABLET PO SCH (10:14)
[2020-04-09] MEDS: PRENATAL VITAMINS W/ FOLIC ACID TABLET (FP) PO SCH (10:14)
[2020-04-09] MEDS: RIVAROXABAN 20 MG TABLET PO SCH (10:14)
[2020-04-09] MEDS: LISINOPRIL 20 MG TABLET (FP) PO SCH (11:03)
--- NOTE | 2020-04-09 12:03 | PN ---
S CIWA - CIWA Score Nausea/Vomitin-No Nausea/No Vomiting Muscle Tremors: 3 Anxiety: 4-Mod. Anxious/Guarded Agitation: 3 Paroxysmal Sweats: No Perspiration Orientation: 0-Oriented Tacttile Disturbances: 0-None Auditory Disturbances: 0-None Visual Disturbances: 0-None Headache: 0-None Present CIWA-Ar Total Score: 10 BHS Progress Note (SOAP) Subjective: c/o "sleepy" slight anxiety sluggish mild tremor Objective: 04/09/20 11:58 Vital Signs - 24 hr 04/08/20 04/08/20 04/08/20 12:42 20:30 21:13 Temperature 97.3 F L 98.9 F Pulse Rate 89 69 Respiratory 16 18 Rate Blood Pressure 124/80 114/60 O2 Sat by Pulse 97 95 Oximetry (%) 04/09/20 04/09/20 06:00 09:15 Temperature 97.5 F L 97.4 F L Pulse Rate 55 L 56 L Respiratory 18 16 Rate Blood Pressure 141/79 117/61 O2 Sat by Pulse 96 95 Oximetry (%) Laboratory Tests 04/08/20 04/08/20 04/08/20 06:04 08:00 08:00 WBC 4.7 RBC 4.11 Hgb 12.1 Hct 36.6 MCV 89.2 MCH 29.3 MCHC 32.9 RDW 13.6 Plt Count 144 MPV 9.0 Absolute Neuts (auto) 2.1 Neutrophils % 43.7 Lymphocytes % 45.4 H Monocytes % 9.1 Eosinophils % 1.4 Basophils % 0.4 Nucleated RBC % 0 Sodium 142 Potassium 3.7 Chloride 106 Carbon Dioxide 28 Anion Gap 8 BUN 5.3 L Creatinine 1.1 Est GFR (CKD-EPI)AfAm 79.52 Est GFR (CKD-EPI)NonAf 68.61 POC Glucometer 159 Random Glucose 166 H Calcium 8.5 Phosphorus 3.7 Magnesium 1.6 L Total Bilirubin 0.4 AST 32 ALT 38 Alkaline Phosphatase 64 Total Protein 6.0 L Albumin 3.1 L 04/08/20 04/09/20 16:56 07:31 WBC RBC Hgb Hct MCV MCH MCHC RDW Plt Count MPV Absolute Neuts (auto) Neutrophils % Lymphocytes % Monocytes % Eosinophils % Basophils % Nucleated RBC % Sodium Potassium Chloride Carbon Dioxide Anion Gap BUN Creatinine Est GFR (CKD-EPI)AfAm Est GFR (CKD-EPI)NonAf POC Glucometer 125 164 Random Glucose Calcium Phosphorus Magnesium Total Bilirubin AST ALT Alkaline Phosphatase Total Protein Albumin covid-19 not detected (on 04/04/20 during [facility] admission) alert ox 3 nad sitting up in bed and communicating coherently during rounds. Assessment: 04/09/20 11:58 withdrawal sx Plan: cont detox increase po fluids maintain safety pt is scheduled for discharge tomorrow if medically stable.
[2020-04-09] MEDS: THIAMINE HCL 100 MG TABLET (FP) PO SCH (21:29)
[2020-04-09] MEDS: ATORVASTATIN CA 40 MG TABLET (FP) PO SCH (21:29)
[2020-04-09] MEDS: traZODone HCL 100 MG TABLET (FP) PO SCH (21:29)
[2020-04-09] MEDS: MELATONIN 5 MG TABLETS PO SCH (21:30)
[2020-04-10] MEDS ORDERED: chlordiazePOXIDE HCL 10 MG CAPSULE PO PRN
[2020-04-10] MEDS: metFORMIN HCL 500 MG TABLET (FP) PO SCH (06:23)
[2020-04-10 06:36] VITALS: BP 126/70; PULSE 68; TEMP 97.3
--- NOTE | 2020-04-10 08:12 | PN ---
[facility] Progress Note Note: Patient is scheduled for discharge today. Scripts for 30 days supply of medications(Lexapro 20 mg/day, Trazadone 100 mg/HS) are electronically transmitted to [facility], [address] [place] [address]
[2020-04-10] MEDS: PRENATAL VITAMINS W/ FOLIC ACID TABLET (FP) PO SCH (10:54)
[2020-04-10] MEDS: LISINOPRIL 20 MG TABLET (FP) PO SCH (10:54)
[2020-04-10] MEDS: RIVAROXABAN 20 MG TABLET PO SCH (10:54)
[2020-04-10] MEDS: ESCITALOPRAM OXALATE 20 MG TABLET PO SCH (10:55)
--- NOTE | 2020-04-10 14:18 | DS ---
[facility] Detox Discharge Summary Admission Date: 04/07/20 Discharge Date: 04/10/20 - History Present History: Alcohol Dependence Additional Comments: pt has own PCP with [facility] on [facility]. [place], [place]. pt reports he has own medications . Pertinent Past History: See DX - Physical Exam Results Vital Signs: Vital Signs Temperature 97.3 F L 04/10/20 06:00 Pulse Rate 68 04/10/20 06:00 Respiratory Rate 18 04/10/20 06:00 Blood Pressure 126/70 04/10/20 06:00 O2 Sat by Pulse Oximetry (%) 97 04/10/20 06:00 Pertinent Admission Physical Exam Findings: Laboratory Tests 04/08/20 04/08/20 04/08/20 06:04 08:00 08:00 WBC 4.7 RBC 4.11 Hgb 12.1 Hct 36.6 MCV 89.2 MCH 29.3 MCHC 32.9 RDW 13.6 Plt Count 144 MPV 9.0 Absolute Neuts (auto) 2.1 Neutrophils % 43.7 Lymphocytes % 45.4 H Monocytes % 9.1 Eosinophils % 1.4 Basophils % 0.4 Nucleated RBC % 0 Sodium 142 Potassium 3.7 Chloride 106 Carbon Dioxide 28 Anion Gap 8 BUN 5.3 L Creatinine 1.1 Est GFR (CKD-EPI)AfAm 79.52 Est GFR (CKD-EPI)NonAf 68.61 POC Glucometer 159 Random Glucose 166 H Calcium 8.5 Phosphorus 3.7 Magnesium 1.6 L Total Bilirubin 0.4 AST 32 ALT 38 Alkaline Phosphatase 64 Total Protein 6.0 L Albumin 3.1 L 04/08/20 04/09/20 04/09/20 16:56 07:31 16:21 WBC RBC Hgb Hct MCV MCH MCHC RDW Plt Count MPV Absolute Neuts (auto) Neutrophils % Lymphocytes % Monocytes % Eosinophils % Basophils % Nucleated RBC % Sodium Potassium Chloride Carbon Dioxide Anion Gap BUN Creatinine Est GFR (CKD-EPI)AfAm Est GFR (CKD-EPI)NonAf POC Glucometer 125 164 197 Random Glucose Calcium Phosphorus Magnesium Total Bilirubin AST ALT Alkaline Phosphatase Total Protein Albumin 04/10/20 06:23 WBC RBC Hgb Hct MCV MCH MCHC RDW Plt Count MPV Absolute Neuts (auto) Neutrophils % Lymphocytes % Monocytes % Eosinophils % Basophils % Nucleated RBC % Sodium Potassium Chloride Carbon Dioxide Anion Gap BUN Creatinine Est GFR (CKD-EPI)AfAm Est GFR (CKD-EPI)NonAf POC Glucometer 159 Random Glucose Calcium Phosphorus Magnesium Total Bilirubin AST ALT Alkaline Phosphatase Total Protein Albumin - Treatment Hospital Course: Detox Protocol Followed, Detoxed Safely, Responded well, Discharged Condition Good, Rehab Referral Accepted Patient has Accepted a Rehab Referral to: [facility] - Medication Discharge Medications: Ambulatory Orders Atorvastatin Ca [Lipitor] 40 mg PO HS #14 tablet 08/15/18 Lisinopril [Prinivil] 20 mg PO DAILY #14 tablet 08/15/18 Glipizide [Glucotrol -] 5 mg PO BID 04/04/20 Metformin HCl [Glucophage] 1,000 mg PO BID 04/04/20 Metoprolol Succinate [Toprol XL -] 100 mg PO DAILY 04/04/20 Multivitamin [One-Daily Multi-Vitamin] 1 each PO DAILY 04/04/20 Rivaroxaban [Xarelto -] 20 mg PO DAILY 04/04/20 Chlordiazepoxide [Librium -] 10 mg PO Q12H capsule 04/07/20 Chlordiazepoxide [Librium -] 10 mg PO Q4H PRN capsule 04/07/20 Chlordiazepoxide [Librium -] 10 mg PO [id number] capsule 04/07/20 Chlordiazepoxide [Librium -] 25 mg PO Q4H PRN capsule 04/07/20 Chlordiazepoxide [Librium -] 25 mg PO [id number] capsule 04/07/20 Chlordiazepoxide [Librium -] 50 mg PO [id number] capsule 04/07/20 Escitalopram Oxalate [Lexapro -] 20 mg PO DAILY #30 tablet 04/10/20 traZODone HCL [Desyrel -] 100 mg PO HS #30 tablet 04/10/20 - Diagnosis (1) Alcohol dependence with uncomplicated withdrawal Status: Acute (2) Atrial fibrillation Status: Chronic Qualifiers: Atrial fibrillation type: unspecified Qualified Code(s): I48.91 - Unspecified atrial fibrillation (3) Diabetes mellitus Status: Chronic Qualifiers: Diabetes mellitus type: type 2 Diabetes mellitus restorative rehab aide insulin use: without restorative rehab aide use Diabetes mellitus complication status: without complication Qualified Code(s): E11.9 - Type 2 diabetes mellitus without complications (4) GERD (gastroesophageal reflux disease) Status: Chronic (5) Hyperlipidemia Status: Chronic Qualifiers: Hyperlipidemia type: unspecified Qualified Code(s): E78.5 - Hyperlipidemia, unspecified (6) Hypertension Status: Chronic Qualifiers: Hypertension type: essential hypertension Qualified Code(s): I10 - Essential (primary) hypertension (7) H/O prostatectomy Status: Resolved - AMA Did Patient Leave Against Medical Advice: No
[2020-04-11] MEDS ORDERED: chlordiazePOXIDE HCL 10 MG CAPSULE PO ONE (06:00)
== END 2020-04-10 12:15 | disposition other institution (70) | DRG 897 ==
LOC: YASAS 17:30 → Y5N DETOX 18:05
PROVIDERS: ADMIT Allergy & Immunology; ATTEND Allergy & Immunology
PROC: HZ2ZZZZ Detoxification Services for Substance Abuse Treatment (ICD-10-PCS; principal; 2020-04-07)
DX: F10.230 Alcohol dependence with withdrawal, uncomplicated (principal); F10.24 Alcohol dependence with alcohol-induced mood disorder; F10.282 Alcohol dependence with alcohol-induced sleep disorder; F32.9 Major depressive disorder, single episode, unspecified; I48.91 Unspecified atrial fibrillation; R01.1 Cardiac murmur, unspecified; I10 Essential (primary) hypertension; E11.9 Type 2 diabetes mellitus without complications; E78.5 Hyperlipidemia, unspecified; K21.9 Gastro-esophageal reflux disease without esophagitis; R94.31 Abnormal electrocardiogram [ECG] [EKG]; R76.11 Nonspecific reaction to tuberculin skin test without active tuberculosis; Z79.84 Long term (current) use of oral hypoglycemic drugs; Z79.01 Long term (current) use of anticoagulants; Z85.46 Personal history of malignant neoplasm of prostate; Z90.79 Acquired absence of other genital organ(s)
CPT/HCPCS: 36415; 80053; 82962; 83735; 84100; 85025; Q0162

== ENCOUNTER 2023-11-11 19:21 | Inpatient (IN) | payer OTHER ==
[2023-11-11 20:02] VITALS: BMI 26.6
[2023-11-11] MEDS ORDERED: guaiFENesin 600 MG TABLET.ER (FP) PO PRN (21:16)
[2023-11-11] MEDS ORDERED: POLYETHYLENE GLYCOL (HEALTHYLAX) 3350 17 GM PACKET PO PRN (21:16)
[2023-11-11] MEDS ORDERED: BENZOCAINE/MENTHOL (CHLORASEPTIC ) LOZENGE MM PRN (21:16)
[2023-11-11] MEDS ORDERED: IBUPROFEN 400 MG TABLET (FP) PO PRN (21:16)
[2023-11-11] MEDS ORDERED: MAGNESIUM HYDROX 2400MG/30ML ORAL SUSPENSION 30 ML CUP PO PRN (21:16)
[2023-11-11] MEDS ORDERED: MAG HYDROX/AL HYDROX/SIMETH 30 ML UNIT-DOSE CUP PO PRN (21:16)
[2023-11-11] MEDS ORDERED: BENZONATATE 200 MG CAPSULE PO PRN (21:16)
[2023-11-11] MEDS ORDERED: ACETAMINOPHEN 325 MG TABLET (FP) PO PRN (21:16)
[2023-11-11] MEDS ORDERED: P-EPHED 60MG/TRIPROLIDI 2.5MG TABLET PO PRN (21:16)
[2023-11-11] MEDS ORDERED: chlordiazePOXIDE HCL 25 MG CAPSULE PO PRN (21:17)
[2023-11-11] MEDS: THIAMINE HCL 100 MG TABLET (FP) PO SCH (22:44)
[2023-11-11] MEDS: MELATONIN 5 MG TABLETS PO SCH (22:44)
[2023-11-11] MEDS: chlordiazePOXIDE HCL 25 MG CAPSULE PO SCH (22:45)
[2023-11-11] MEDS: INSULIN ASPART SLIDING SCALE (NOVOLOG) 1 VIAL SQ SCH (23:08)
[2023-11-12] MEDS: PRENATAL VITAMINS W/ FOLIC ACID TABLET (FP) PO SCH (10:19)
[2023-11-12 10:39] LABS: HEMOGLOBIN 13.2 GM/dL (11.7-16.9); MCH 28.9 pg (25.7-33.7); MCHC 33.9 g/dl (32.0-35.9); MEAN CELL VOLUME 85.2 fl (80-96); MEAN PLT VOLUME 9.6 fl (7.5-11.1); PLATELET COUNT 156 10^3/uL (134-434); RBC 4.58 M/mm3 (4.00-5.60); RDW 13.6 % (11.9-15.9); WHITE BLOOD COUNT 5.4 K/mm3 (4.0-10.0)
[2023-11-12 10:45] LABS: CHLORIDE 100 mmol/L (98-107); POTASSIUM 3.9 mmol/L (3.5-5.1); SODIUM 136 mmol/L (136-145)
[2023-11-12 10:53] LABS: CALCIUM 8.4 mg/dL (8.5-10.1)
[2023-11-12 10:54] LABS: ALBUMIN 3.5 g/dl (3.4-5.0); ANION GAP 8 mmol/L (4-13); BLOOD UREA NITROGEN 9.5 mg/dL (7-18); CO2 28 mmol/L (21-32); GLUCOSE,RANDOM 199 mg/dL (74-106)
[2023-11-12 10:57] LABS: CREATININE 1.2 mg/dL (0.55-1.3); SGOT/AST 97 U/L (15-37); SGPT/ALT 139 U/L (13-61)
[2023-11-12 10:58] LABS: BILIRUBIN,TOTAL 1.5 mg/dL (0.2-1); TOT PROT 6.8 g/dl (6.4-8.2)
[2023-11-12 11:00] LABS: ALK PHOS 102 U/L (45-117)
[2023-11-12] MEDS ORDERED: INSULIN ASPART SLIDING SCALE (NOVOLOG) 1 VIAL SQ ONE (12:22)
[2023-11-12] MEDS: HYDROCORTISONE 2.5% TOPICAL CREAM 30 GM TUBE RC SCH (15:53)
[2023-11-12] MEDS: glipiZIDE 5 MG TABLET (FP) PO SCH (17:27)
[2023-11-12] MEDS: metFORMIN HCL 500 MG TABLET (FP) PO SCH (17:27)
[2023-11-12] MEDS: BISMUTH SUBSALICYLATE 524 MG/30 ML PO PRN (20:35)
[2023-11-12] MEDS: LOPERAMIDE HCL 2 MG CAPSULE PO PRN (21:47)
[2023-11-12] MEDS: ATORVASTATIN CA 40 MG TABLET (FP) PO SCH (22:09)
[2023-11-13] MEDS: chlordiazePOXIDE HCL 10 MG CAPSULE PO SCH (05:50)
[2023-11-14] MEDS ORDERED: chlordiazePOXIDE HCL 10 MG CAPSULE PO PRN
[2023-11-14] MEDS: chlordiazePOXIDE HCL 10 MG CAPSULE PO SCH (05:33)
[2023-11-14] MEDS: ONDANSETRON *ODT* 4 MG TABLET SL PRN (10:17)
[2023-11-16] MEDS: chlordiazePOXIDE HCL 10 MG CAPSULE PO ONE (05:52)
[2023-11-17] MEDS: MELATONIN 5 MG TABLETS PO ONE (02:00)
[2023-11-17] MEDS: INSULIN ASPART SLIDING SCALE (NOVOLOG) 1 VIAL SQ SCH (17:12)
[2023-11-17] MEDS: LACTULOSE 20 GM/30 ML UDC (FOR ORAL USE ONLY) PO SCH (21:37)
[2023-11-18 16:46] VITALS: BP 140/84; PULSE 80; RESP 18; TEMP 97.8
== END 2023-11-18 17:44 | disposition other institution (70) | DRG 897 ==
LOC: YASAS 19:21 → Y3N 21:42
PROVIDERS: ADMIT Allergy & Immunology; ATTEND Surgery
PROC: HZ2ZZZZ Detoxification Services for Substance Abuse Treatment (ICD-10-PCS; principal; 2023-11-11)
DX: F10.230 Alcohol dependence with withdrawal, uncomplicated (principal); F32.A Depression, unspecified; I48.91 Unspecified atrial fibrillation; I10 Essential (primary) hypertension; E78.5 Hyperlipidemia, unspecified; K21.9 Gastro-esophageal reflux disease without esophagitis; E11.9 Type 2 diabetes mellitus without complications; Z79.84 Long term (current) use of oral hypoglycemic drugs; Z79.01 Long term (current) use of anticoagulants; Z86.11 Personal history of tuberculosis; Z85.46 Personal history of malignant neoplasm of prostate; Z90.79 Acquired absence of other genital organ(s)
CPT/HCPCS: 0241U-QW; 36415; 71046-TC-FY; 80053; 80305; 80307; 82140; 82962; 85027; 86780; 87635; 93005; 93010; Q0162

== ENCOUNTER 2023-11-16 21:44 | Emergency (ER) | payer OTHER ==
[2023-11-16 21:58] VITALS: TEMP 98.5; BMI 26.6
[2023-11-16] MEDS: SODIUM CHLORIDE 1,000 ML IV STA (22:36)
[2023-11-16 22:44] LABS: BASO % 0.4 % (0-2.0); EOS % 0.2 % (0-4.5); HEMATOCRIT 41.6 % (35.4-49); HEMOGLOBIN 13.6 GM/dL (11.7-16.9); LYMPH % 29.1 % (8-40); MCH 28.3 pg (25.7-33.7); MCHC 32.8 g/dl (32.0-35.9); MEAN CELL VOLUME 86.4 fl (80-96); MEAN PLT VOLUME 9.4 fl (7.5-11.1); MONO % 5.2 % (3.8-10.2); NEUT % 65.1 % (42.8-82.8); PLATELET COUNT 165 10^3/uL (134-434); RBC 4.82 M/mm3 (4.00-5.60); RDW 13.8 % (11.9-15.9); WHITE BLOOD COUNT 9.9 K/mm3 (4.0-10.0)
[2023-11-16 23:00] LABS: POTASSIUM 4.1 mmol/L (3.5-5.1)
[2023-11-16 23:03] LABS: ALBUMIN 3.9 g/dl (3.4-5.0); BLOOD UREA NITROGEN 10.6 mg/dL (7-18); MAGNESIUM 1.4 mg/dL (1.8-2.4)
[2023-11-16 23:06] LABS: CREATININE 1.2 mg/dL (0.55-1.3)
[2023-11-16 23:07] LABS: BILIRUBIN,TOTAL 0.5 mg/dL (0.2-1); TOT PROT 7.5 g/dl (6.4-8.2)
[2023-11-16] MEDS ORDERED: dilTIAZem HCL 125 MG/25 ML - 25 ML VIAL ONE (23:07)
[2023-11-16 23:13] LABS: CALCIUM 9.9 mg/dL (8.5-10.1)
[2023-11-16] MEDS: dilTIAZem HCL 50 MG/10 ML - 10 ML VIAL IVPUSH ONE ×2 (23:18)
[2023-11-17 00:38] VITALS: BP 128/80; PULSE 82; RESP 16
== END 2023-11-17 01:07 | disposition home or self-care (01) ==
LOC: JER 21:44
PROC: 3E033NZ Introduction of Analgesics, Hypnotics, Sedatives into Peripheral Vein, Percutaneous Approach (ICD-10-PCS; principal; 2023-11-16)
PROC: 3E0337Z Introduction of Electrolytic and Water Balance Substance into Peripheral Vein, Percutaneous Approach (ICD-10-PCS; 2023-11-16)
DX: F32.A Depression, unspecified (principal); R11.10 Vomiting, unspecified; R00.0 Tachycardia, unspecified
CPT/HCPCS: 36415; 80053; 83690; 83735; 85025; 93005; 93010; 96361; 96374; 99284-25

== ENCOUNTER 2023-11-18 17:54 | Inpatient (IN) | payer OTHER ==
[2023-11-18] MEDS ORDERED: MAG HYDROX/AL HYDROX/SIMETH 30 ML UNIT-DOSE CUP PO PRN (18:11)
[2023-11-18] MEDS ORDERED: guaiFENesin 600 MG TABLET.ER (FP) PO PRN (18:11)
[2023-11-18] MEDS ORDERED: ACETAMINOPHEN 325 MG TABLET (FP) PO PRN (18:11)
[2023-11-18] MEDS ORDERED: POLYETHYLENE GLYCOL (HEALTHYLAX) 3350 17 GM PACKET PO PRN (18:11)
[2023-11-18] MEDS ORDERED: IBUPROFEN 400 MG TABLET (FP) PO PRN (18:11)
[2023-11-18] MEDS ORDERED: BENZONATATE 200 MG CAPSULE PO PRN (18:11)
[2023-11-18] MEDS ORDERED: BENZOCAINE/MENTHOL (CHLORASEPTIC ) LOZENGE MM PRN (18:11)
[2023-11-18] MEDS ORDERED: LOPERAMIDE HCL 2 MG CAPSULE PO PRN (18:11)
[2023-11-18] MEDS: THIAMINE HCL 100 MG TABLET (FP) PO SCH (21:23)
[2023-11-18] MEDS: ATORVASTATIN CA 40 MG TABLET (FP) PO SCH (21:23)
[2023-11-18] MEDS: MELATONIN 5 MG TABLETS PO PRN (21:23)
[2023-11-18] MEDS: INSULIN ASPART SLIDING SCALE (NOVOLOG) 1 VIAL SQ SCH (21:23)
[2023-11-19] MEDS: metFORMIN HCL 500 MG TABLET (FP) PO SCH (07:22)
[2023-11-19] MEDS: glipiZIDE 5 MG TABLET (FP) PO SCH (07:22)
[2023-11-19] MEDS: FOLIC ACID 1 MG TABLET (FP) PO SCH (09:49)
[2023-11-19] MEDS: PRENATAL VITAMINS W/ FOLIC ACID TABLET (FP) PO SCH (09:49)
[2023-11-19] MEDS: RIVAROXABAN 20 MG TABLET PO SCH (10:59)
[2023-11-19] MEDS ORDERED: INSULIN (NOVOLOG) ASPART 100 UNITS/ML 10ML VIAL ONE (16:51)
[2023-11-20] MEDS ORDERED: INSULIN (NOVOLOG) ASPART 100 UNITS/ML 10ML VIAL ONE (16:46)
[2023-11-21] MEDS: MAGNESIUM HYDROX 2400MG/30ML ORAL SUSPENSION 30 ML CUP PO PRN (11:44)
[2023-11-22] MEDS ORDERED: INSULIN (NOVOLOG) ASPART 100 UNITS/ML 10ML VIAL ONE ×2 (16:42→21:35)
[2023-11-22] MEDS: INSULIN ASPART SLIDING SCALE (NOVOLOG) 1 VIAL SQ SCH (16:53)
[2023-11-23] MEDS ORDERED: INSULIN (NOVOLOG) ASPART 100 UNITS/ML 10ML VIAL ONE (16:17)
[2023-11-25] MEDS: MIRTAZAPINE 15 MG TABLET (FP) PO SCH (21:19)
[2023-12-01 09:10] VITALS: TEMP 97.6
[2023-12-01] MEDS ORDERED: INSULIN (NOVOLOG) ASPART 100 UNITS/ML 10ML VIAL ONE (16:40)
[2023-12-02 06:44] VITALS: RESP 16
[2023-12-02 08:55] VITALS: BP 133/80; PULSE 79
== END 2023-12-02 12:45 | disposition home or self-care (01) | DRG 895 ==
LOC: YASAS 17:54 → Y3E 17:56
PROVIDERS: ADMIT Allergy & Immunology; ATTEND Psychiatry & Neurology Pain Medicine
PROC: HZ42ZZZ Group Counseling for Substance Abuse Treatment, Cognitive-Behavioral (ICD-10-PCS; principal; 2023-11-18)
DX: F10.20 Alcohol dependence, uncomplicated (principal); F10.280 Alcohol dependence with alcohol-induced anxiety disorder; F10.282 Alcohol dependence with alcohol-induced sleep disorder; F10.24 Alcohol dependence with alcohol-induced mood disorder; F32.A Depression, unspecified; I10 Essential (primary) hypertension; R78.5 Finding of other psychotropic drug in blood; E11.9 Type 2 diabetes mellitus without complications; Z79.84 Long term (current) use of oral hypoglycemic drugs; K21.9 Gastro-esophageal reflux disease without esophagitis; Z90.79 Acquired absence of other genital organ(s); Z86.11 Personal history of tuberculosis; Z86.79 Personal history of other diseases of the circulatory system
CPT/HCPCS: 82962